=== PATIENT | female | born 1950 | race Caucasian/White ===

== ENCOUNTER 2023-12-30 13:33 | Emergency (ER) | payer MEDICAID, SELFPAY ==
[2023-12-30 13:37] VITALS: BP 194/113
--- NOTE | 2023-12-30 14:38 | ED.MUSCINJ ---
HPI-Injury
General
Chief Complaint: Musculo-Skeletal Complaint
Source: patient
Exam Limitations: none
Time Seen by Provider: 12/30/23 14:25
History of Present Illness-Injury
Initial Injury comments:
73-year-old female presents complaining of a right ring finger that has been locked in the flexed position. This happens intermittently over 2 weeks. She also notes that she stuck her ring finger with a needle. She is concerned about infection.
No known injury. No other complaints at this time
Past History
Past History
ED Past Medical History: Hypercholesterolemia and Psychiatric (Bipolar)
ED Past Surgical History: None
Social History
Tobacco: Non-smoker
Alcohol: Occasional
Drug: None
Personal:
Living: with family
Phy Exam
Physical Exam
Physical Exam:
General: Well-appearing female no acute respiratory distress
Musculoskeletal exam: Right ring finger locked in a flexed position at the PIP joint. She is slightly tender over the volar aspect of the hand. No associated erythema or swelling is noted.
neuro: alert, good sensation to right ring finger
Vascular: brisk capillary refill right ring finger
MDM/Problems Addressed
Differential Diagnosis Includes:
Patient concerned about swelling needlestick to right ring finger causing pain and concerned about potential underlying infection. Can consider covering with Keflex for coverage. She also has a trigger finger to the right ring finger. She states
she can occasionally straighten this out. I recommend that she follow-up with a hand specialist for definitive treatment regarding her trigger finger. Attempted to call the daughter is listed on the chart however there is no answer. No indication
for any further intervention.
*Critical Care Note
Total Time (30-74mins, 75-104mins- exclusive of procedures): Not Applicable
ED Attending Note
-
Portions of this chart may have been created with voice recognition software.� Occasional wrong word or��sound alike� substitutions may have occurred due to the inherent limitations of voice recognition software.
Discharge Plan
Departure
Patient Disposition: Home (Routine Discharge)
Date of Disposition: 12/30/23
Time of Disposition: 14:43
Patient with high blood pressure during this ER visit?: No
Discharge Problem:
Trigger finger, Needle stick injury
Prescriptions:
New
cephalexin 500 mg capsule
500 mg PO BID 14 Days Qty: 28 0RF
No Action
5-Hydroxytryptophan (5-Htp)
1 tab PO DAILY
B-100 Complex
1 tab PO DAILY
ascorbic acid (vitamin C) [Vitamin C] 500 MG tablet,chewable
1 tab PO DAILY
Gerson's wort 150 MG capsule
1 tab PO DAILY
s-adenosylmethionine [CARRI-e] 200 MG tablet
1 tab PO DAILY
Magnesium
1 tab PO DAILY
Referrals:
NONE,* [Family Provider] -
Dominick Samayoa MD [Active] -
Activity Restrictions/Additional Instructions:
Take medicine as directed. Follow-up with orthopedic doctor for further evaluation of your trigger finger. Return if needed.
Interventions
Interventions:
*Risk Screen - Suicide Last Done: 12/30/23 14:00
*General Assessment Last Done: 12/30/23 14:00
*Neglect/Abuse Screening Last Done: 12/30/23 14:00
*ED COVID-19 Vaccine History Last Done: 12/30/23 14:00
ED-Musculoskeletal Assessment Last Done: 12/30/23 13:59
Discharge Date and Time
Print Language: ISRAELI
--- NOTE | 2023-12-30 14:58 | PTCARENOTE ---
Pt refusing any follow-up vital signs.
== END 2023-12-30 14:59 | disposition home or self-care (01) ==
LOC: EMR 13:33
PROVIDERS: EMERGENCY PHYSICIAN Emergency Medicine
DX: M65.341 Trigger finger, right ring finger (principal); M79.89 Other specified soft tissue disorders; W26.8XXA Contact with other sharp object(s), not elsewhere classified, initial encounter; E78.00 Pure hypercholesterolemia, unspecified; F31.9 Bipolar disorder, unspecified; Z88.1 Allergy status to other antibiotic agents; Z88.2 Allergy status to sulfonamides; Z88.8 Allergy status to other drugs, medicaments and biological substances
CPT/HCPCS: 99283

== ENCOUNTER 2024-05-05 13:36 | Emergency (ER) | payer MEDICAID, SELFPAY ==
--- NOTE | 2024-05-05 13:37 | ED.GENMED ---
ED Provider Triage
<Yessi Abreu PA-C - Last Filed: 05/05/24 13:41>
-
Patient seen by provider in Triage?: Seen in Triage
Attestation: A medical screening examination has been initiated by a qualified medical provider. Based on the assessment performed at this time, it has been determined that an emergent medical condition may exist and the patient has been informed
that further medical evaluation and possible additional diagnostic testing may be needed.
HPI: 74yoF here with nasal congestion x 1-2 days. Feels like she is coming down with something. No fevers.
GENERAL: Alert , in no apparent distress
EYE: No visual abnormalities.
NECK: Trachea midline
ENT: No visible abnormalities.
LUNGS: No acute respiratory distress
NEUROLOGICAL: Alert and oriented
SKIN: Skin intact. No visible changes.
MUSCULOSKELETAL: Moving extremities normally
PSYCH: Normal and appropriate interaction.
This is a medical evaluation conducted in person to initiate diagnostic evaluation and provide initial therapeutics. Please see further documentation by the treating clinician.
COVID/flu swab ordered.
History of Present Illness
<Yessi Abreu PA-C - Last Filed: 05/05/24 13:41>
General
Chief Complaint: Cold/Flu/URI Symptoms
Time Seen by Provider: 05/05/24 14:29
<Riccardo Turcios PA-C - Last Filed: 05/05/24 14:47>
General
Source: patient
Exam Limitations: none
History of Present Illness
History of Present Illness:
74-year-old female presents with sensation of congestion and cough for the past 1 to 2 days. No known fever. She feels as though she coming down with something. She states has been around a lot of sick people. She had a walk 2 miles to get here
today.
Past History
<Yessi Abreu PA-C - Last Filed: 05/05/24 13:41>
Past History
ED Past Medical History: Hypercholesterolemia and Psychiatric (Bipolar)
ED Past Surgical History: None
Social History
Tobacco: Non-smoker
Alcohol: Occasional
Drug: None
Personal:
Living: with family
Phy Exam
<Riccardo Turcios PA-C - Last Filed: 05/05/24 14:47>
Physical Exam
Physical Exam:
General: Well-appearing female no acute respiratory distress there is a cough throughout the exam
HEENT: Normocephalic atraumatic posterior pharynx without erythema or exudate neck is supple
Heart: Regular rate and rhythm
Lungs: Clear dry cough
Extremities: No cyanosis
Course
<Yessi Abreu PA-C - Last Filed: 05/05/24 13:41>
Orders/Labs/Results
Orders:
Orders
05/05/24 13:46
COVID-19 Antigen Urgent
Source: Nasal Swab
Influenza A+B Rapid Molecular Urgent
MART[facility]N Source: Nasal Swab
Specimen Description:
Vital Signs
Initial and Last Documented VS:
Initial Vital Signs
Temp Pulse Resp BP Pulse Ox
98.1 F 86 18 177/110 97
05/05/24 13:38 05/05/24 13:38 05/05/24 13:38 05/05/24 13:38 05/05/24 13:38
Last Documented Vital Signs
Temp Pulse Resp BP Pulse Ox
98.1 F 86 18 177/110 97
05/05/24 13:38 05/05/24 13:38 05/05/24 13:38 05/05/24 13:38 05/05/24 13:38
<Riccardo Turcios PA-C - Last Filed: 05/05/24 14:47>
Orders/Labs/Results
Orders:
Orders
05/05/24 13:46
COVID-19 Antigen Urgent
Source: Nasal Swab
Influenza A+B Rapid Molecular Urgent
MARTÍN Source: Nasal Swab
Specimen Description:
Vital Signs
Initial and Last Documented VS:
Initial Vital Signs
Temp Pulse Resp BP Pulse Ox
98.1 F 86 18 177/110 97
05/05/24 13:38 05/05/24 13:38 05/05/24 13:38 05/05/24 13:38 05/05/24 13:38
Last Documented Vital Signs
Temp Pulse Resp BP Pulse Ox
98.1 F 86 18 177/110 97
05/05/24 13:38 05/05/24 13:38 05/05/24 13:38 05/05/24 13:38 05/05/24 13:38
<Riccardo Turcios PA-C - Last Filed: 05/05/24 14:47>
MDM/Problems Addressed
Differential Diagnosis Includes:
Patient with cough. She states she has gotten like this in the past and she usually requires antibiotics. COVID and flu are negative. Question viral illness. I did explain that this is most likely a viral illness however it is a hardship for her
to get to healthcare. She is not have a family doctor. Will prescribe doxycycline to cover in the event there is a secondary bacterial infection. Recommended rest and fluids. No respiratory distress no indication for x-ray or further test at
this time
<Riccardo Turcios PA-C - Last Filed: 05/05/24 14:47>
*Critical Care Note
Total Time (30-74mins, 75-104mins- exclusive of procedures): Not Applicable
ED Attending Note
<Yessi Abreu PA-C - Last Filed: 05/05/24 13:41>
-
Portions of this chart may have been created with voice recognition software.� Occasional wrong word or��sound alike� substitutions may have occurred due to the inherent limitations of voice recognition software.
Discharge Plan
Departure
Patient Disposition: Home (Routine Discharge)
Date of Disposition: 05/05/24
Time of Disposition: 14:45
Patient with high blood pressure during this ER visit?: No
Discharge Problem:
Acute bronchitis
Instructions: Viral Upper Respiratory Infection, Adult (DC)
Prescriptions:
New
doxycycline hyclate 100 mg capsule
100 mg PO BID Qty: 14 0RF
No Action
5-Hydroxytryptophan (5-Htp)
1 tab PO DAILY
B-100 Complex
1 tab PO DAILY
ascorbic acid (vitamin C) [Vitamin C] 500 MG tablet,chewable
1 tab PO DAILY
Gerson's wort 150 MG capsule
1 tab PO DAILY
s-adenosylmethionine [CARRI-e] 200 MG tablet
1 tab PO DAILY
Magnesium
1 tab PO DAILY
cephalexin 500 mg capsule
500 mg PO BID 14 Days Qty: 28 0RF
Referrals:
NONE,* [Family Provider] -
Activity Restrictions/Additional Instructions:
Rest. Drink plenty of fluids. As discussed this may be a viral illness but will prescribe an antibiotic to cover this is hard for you to get to healthcare. A prescription was provided to you for doxycycline. Take this as directed
Interventions
Interventions:
*Risk Screen - Suicide Last Done: 05/05/24 13:38
*General Assessment Last Done: 05/05/24 13:38
Discharge Date and Time
Print Language: DANISH
[2024-05-05 13:38] VITALS: BP 177/110
[2024-05-05 14:15] LABS: COVID-19 Antigen Negative (Negative)
== END 2024-05-05 14:59 | disposition home or self-care (01) ==
LOC: EMR 13:36
PROVIDERS: Physician Assistant; EMERGENCY PHYSICIAN Emergency Medicine
DX: J20.9 Acute bronchitis, unspecified (principal); Z11.52 Encounter for screening for COVID-19
CPT/HCPCS: 99283; 87502; 87811